=== PATIENT | male | born 1965 | race Hispanic/Latino ===

== ENCOUNTER 2019-11-08 05:49 | Emergency (ER) | payer SELFPAY ==
[2019-11-08] MEDS ORDERED: ALPRAZolam 0.25 MG TAB GT ONE (06:07)
--- NOTE | 2019-11-08 06:18 | ED.PDOC ---
History of Present Illness - General Source: patient Exam Limitations: clinical condition - History of Present Illness Initial Comments: The patient is a 54-year-old male with ALS presenting to the emergency room secondary to increased anxiety and increased tachycardia over the past couple of hours. The patient has been later dependent. He is currently on Levaquin for a pneumonia. The patient mainly reports that he just feels a little short of breath although bit anxious. The patient has quickly found to have a cuff leak on his trach. We did with his permission, change it out for another size 8 trach. He tolerated this well and we seem to be getting a good seal. Moderate tachycardia does still persist however. He does still report a little bit of anxiety. This is apparently a chronic problem. The patient was also apparently just started on riluzole for his ALS, 1 of the more frequent side effects is tachycardia. He is not reporting any chest pain. He is oxygenating well and ventilating well. The patient is pleasant and cooperative. He did receive 1 Xanax and 1 hydrocodone last night. No syncope or near syncope. No fever. Minimal secretions. The patient has not been seen here before. Timing/Duration: 1-3 hours Severity: moderate Improving Factors: nothing Worsening Factors: nothing Associated Symptoms: shortness of breath <Magan Cano L - Last Filed: 11/08/19 06:15> <Aneesh Rodriges - Last Filed: 11/08/19 10:24> - General Chief Complaint: Behavioral / Psych Stated Complaint: increased anxiety, elevated BP, less responsive Time Seen by Provider: 11/08/19 05:51 - History of Present Illness Allergies/Adverse Reactions: Allergies NO KNOWN ALLERGY Allergy (Verified 11/08/19 06:04) Home Medications: Ambulatory Orders ALPRAZolam [Xanax] 0.25 mg GT Q24HR PRN 11/08/19 Acetaminophen [Acetaminophen Extra Stren] 500 mg GT Q8HRS PRN 11/08/19 Albuterol Sulfate Nebs [Proventil Nebs] 2.5 mg INH TID PRN 11/08/19 Alprazolam 0.25 mg GT DAILY 11/08/19 Aluminum & Magnesium Hydroxide [Maalox] 30 ml GT Q8HR PRN 11/08/19 Ascorbic Acid [Vitamin C] 500 mg GT DAILY 11/08/19 Atropine Sulfate (Ophthalmic) [Atropine Sulfate] 2 drop PO Q6H PRN 11/08/19 Baclofen 10 mg GT BID 11/08/19 Balsam [place] Oil [Venelex] 1 applic TOP QSHIFT 11/08/19 Bisacodyl Suppository 10Mg [Dulcolax Suppository 10mg] 10 mg HI Q24HR PRN 11/08/19 Cetirizine HCl [All Day Allergy] 10 mg GT DAILY 11/08/19 Chlorhexidine Gluconate (Mouth [Chlorhexidine Gluconate] 15 ml GT Q6HR PRN 11/08/19 Cholestyramine 4 gm GT BID 11/08/19 Citalopram Hydrobromide [Citalopram] 40 mg GT DAILY 11/08/19 Cyanocobalamin [Vitamin B-12] 100 mcg GT DAILY 11/08/19 Dextromethorphan HBr-Quinidine [Nuedexta 20-10 mg] 1 capsule GT DAILY 11/08/19 Gabapentin 300 mg GT DAILY 11/08/19 HYDROcodone 10MG/APAP 325MG [[place] 10/325] 1 tab GT Q12HR PRN 11/08/19 Ibuprofen 800 mg GT Q8HR PRN 11/08/19 Ipratropium/Albuterol [Duoneb] 3 ml NEB Q4HR PRN 11/08/19 Loperamide Cap [Imodium Cap] 2 mg GT PRN PRN 11/08/19 Misc Natural Products [Turmeric Curcumin] 2 capsule GT DAILY 11/08/19 Polyethylene Glycol 3350 17 gm GT DAILY 11/08/19 Riluzole 50 mg GT Q12HRS 11/08/19 Scopolamine 1.5 mg TD WKLY 11/08/19 Sennosides-Docusate Sodium [Doc-Q-Lax] 1 tab GT DAILY 11/08/19 Sertraline HCl 25 mg GT DAILY 11/08/19 Temazepam 15 mg GT BEDTIME 11/08/19 levoFLOXacin [Levaquin] 500 mg GT DAILY 11/08/19 Review of Systems - Review of Systems Constitutional: States: no symptoms reported EENTM: States: no symptoms reported Respiratory: States: short of breath Cardiology: States: palpitations Gastrointestinal/Abdominal: States: no symptoms reported Genitourinary: States: no symptoms reported Musculoskeletal: States: no symptoms reported Skin: States: no symptoms reported Neurological: States: see HPI, anxiety, depressed Endocrine: States: no symptoms reported All other Systems: No Change from Baseline <aMgan Cano - Last Filed: 11/08/19 06:15> Past Medical History (General) - Patient Medical History Hx Seizures: No Hx Stroke: No Hx Dementia: No Hx Asthma: No Hx of COPD: No Hx Cardiac Disorders: No Hx Congestive Heart Failure: No Hx Pacemaker: No Hx Hypertension: Yes Hx Thyroid Disease: No Hx Diabetes: No Hx Gastroesophageal Reflux: Yes Hx Renal Disease: No Hx Cancer: No Hx of HIV: No Hx Hepatitis C: No Hx MRSA: No Surgical History: noncontributory - Vaccination History Hx Influenza Vaccination: Yes - Social History Hx Alcohol Use: No - Activities of Daily Living Longterm/Assisted Living (if applicable):: [facility] <Magan Cano - Last Filed: 11/08/19 06:15> Family Medical History - Family History Mother Family History: Unknown <Magan Cano Sue - Last Filed: 11/08/19 06:15> Physical Exam - Physical Exam General Appearance: Alert, Anxious, No apparent distress Eye Exam: bilateral normal Ears, Nose, Throat: hearing grossly normal, normal pharynx Neck: full range of motion, supple, other - Tracheostomy is in place however the initial trach cuff is leaking Respiratory: normal breath sounds, no respiratory distress, no accessory muscle use, rales - What I suspect are chronic bibasilar Rales. Cardiovascular/Chest: normal peripheral pulses, no edema, tachycardia - Sinus Peripheral Pulses: radial,right: 2+, radial,left: 2+, dorsalis pedis,right: 2+, dorsalis pedis,left: 2+ Gastrointestinal/Abdominal: non tender, soft Rectal Exam: deferred Back Exam: no vertebral tenderness Extremity: no pedal edema, no calf tenderness, normal capillary refill, other - The patient does have some arthritic changes in his hands. He does have some wasting of his extremities otherwise. Neurologic: automobile bumper straightener II-XII nml as tested, alert, oriented x 3, other - He is anxious. He is able to communicate with hand gestures and yes/no questions. Information does seem fairly reliable. 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 The initial problem found is a cuff leak on his trach. It was changed out with apparent success. This did help the symptoms of shortness of breath and anxiety somewhat. He is still moderately tachycardic. He is currently being treated for pneumonia. We are obtaining a chest x-ray. We are also obtaining blood work as this is the first time we have seen this patient. Tachycardia is a significant side effect of riluzole, which he started just 2 days ago. If no other source of the tachycardia is found, then discontinuation of this medication for a day or 2 may be warranted to see if the tachycardia resolves. EKG was obtained here primarily for baseline and to make sure there seem to be no underlying other arrhythmia. The patient did receive a dose of 0.5 mg Xanax here by his G-tube for anxiety. 11/08/19 06:24 - Results/Orders Results/Orders: EKG shows sinus tachycardia 127 bpm. Borderline right axis. Normal R wave progression. Borderline LVH criteria. Very mildly prolonged QT interval. No definite ST segment or T wave changes indicative of acute ischemia. <JeromeGomeznilo Rogers - Last Filed: 11/08/19 06:15> - Results/Orders Results/Orders: ELEV D-DIMER FROM PNE. CTA NEG FOR P.E. PENDING: SPUTUM CX, COVID-19 SWAB, BLOOD CX. NEG DIAGNOSTICS: COAGS, CMP, EKG (SINUS TACH), TSH, LACTIC ACID, BNP, CTA. TACHYCARDIA FROM DEHYDRATION IMPROVED WITH BOLUS. 132, NOW 104. ANXIETY IMPROVED WITH TRACHEOSTOMY CUFF CHANGE NOW PROVIDING A TIGHT SEAL (HAD BEEN LEAKING). SATS WNL. CTA NEG. PT HAVING NO RESPIRATORY OR OTHER DISTRESS. IS COMFORTABLE. OBSERVED IN ER FOR 4 HRS AND PT HAS REMAINED STABLE AND COMFORTABLE. HAS KNOWN PNA WITH ELEV WBC 29,000, CXR BLL PNE, IS ON LEVAQUIN. DOES NOT REQUIRE HOSPITAL ADMISSION (VSS). PNE CAN CONTINUE TO BE TX OUTPT AT THE [facility], WHICH HAS CHRONIC VENTILATOR MANAGEMENT. CONTINUE OUTPT LEVAQUIN AND VENT MGMT AT [place]. INPT IS NOT REQUIRED AT THIS TIME, HOWEVER INSTRUCTIONS GIVEN TO RETURN TO ER IF CONDITION WORSENS. - EKG/XRAY/CT EKG: Sinus, Tachy <Aneesh Rodriges - Last Filed: 11/08/19 10:24> Departure - Departure Diet: other Activity: increase activity as tolerated <Magan Cano - Last Filed: 11/08/19 06:15> <Aneesh Rodriges - Last Filed: 11/08/19 10:24> - Departure Clinical Impression: Generalized anxiety disorder, Complication of tracheostomy tube, Sinus tachycardia by electrocardiogram, Pneumonia, Neutrophilic leukocytosis, Dehydration Disposition: Discharge to SNF Condition: Fair Departure Forms: ED Discharge - Pt. Copy, Patient Portal Self Enrollment Instructions: Generalized Anxiety Disorder (DC) Referrals: KAYLYNN HAM [Primary Care Provider] - 1-2 Days Home Medications: Ambulatory Orders ALPRAZolam [Xanax] 0.25 mg GT Q24HR PRN 11/08/19 Acetaminophen [Acetaminophen Extra Stren] 500 mg GT Q8HRS PRN 11/08/19 Albuterol Sulfate Nebs [Proventil Nebs] 2.5 mg INH TID PRN 11/08/19 Alprazolam 0.25 mg GT DAILY 11/08/19 Aluminum & Magnesium Hydroxide [Maalox] 30 ml GT Q8HR PRN 11/08/19 Ascorbic Acid [Vitamin C] 500 mg GT DAILY 11/08/19 Atropine Sulfate (Ophthalmic) [Atropine Sulfate] 2 drop PO Q6H PRN 11/08/19 Baclofen 10 mg GT BID 11/08/19 Balsam [place] Oil [Venelex] 1 applic TOP QSHIFT 11/08/19 Bisacodyl Suppository 10Mg [Dulcolax Suppository 10mg] 10 mg HI Q24HR PRN 11/08/19 Cetirizine HCl [All Day Allergy] 10 mg GT DAILY 11/08/19 Chlorhexidine Gluconate (Mouth [Chlorhexidine Gluconate] 15 ml GT Q6HR PRN 11/08/19 Cholestyramine 4 gm GT BID 11/08/19 Citalopram Hydrobromide [Citalopram] 40 mg GT DAILY 11/08/19 Cyanocobalamin [Vitamin B-12] 100 mcg GT DAILY 11/08/19 Dextromethorphan HBr-Quinidine [Nuedexta 20-10 mg] 1 capsule GT DAILY 11/08/19 Gabapentin 300 mg GT DAILY 11/08/19 HYDROcodone 10MG/APAP 325MG [[place] 10/325] 1 tab GT Q12HR PRN 11/08/19 Ibuprofen 800 mg GT Q8HR PRN 11/08/19 Ipratropium/Albuterol [Duoneb] 3 ml NEB Q4HR PRN 11/08/19 Loperamide Cap [Imodium Cap] 2 mg GT PRN PRN 11/08/19 Misc Natural Products [Turmeric Curcumin] 2 capsule GT DAILY 11/08/19 Polyethylene Glycol 3350 17 gm GT DAILY 11/08/19 Riluzole 50 mg GT Q12HRS 11/08/19 Scopolamine 1.5 mg TD WKLY 11/08/19 Sennosides-Docusate Sodium [Doc-Q-Lax] 1 tab GT DAILY 11/08/19 Sertraline HCl 25 mg GT DAILY 11/08/19 Temazepam 15 mg GT BEDTIME 11/08/19 levoFLOXacin [Levaquin] 500 mg GT DAILY 11/08/19
--- NOTE | 2019-11-08 06:24 | RAD ---
Chest one view on 11/08/2019 CLINICAL INDICATION: Pneumonia COMPARISON: None FINDINGS: Tracheostomy tube tip is in the midthoracic trachea. Right IJ catheter tip is in the right atrium. Heart is within normal limits for size. There are bilateral lower lung opacities consistent with atelectasis and/or pneumonia, consider aspiration. Differential diagnosis would include viral infections. IMPRESSION: Bilateral lower lung atelectasis and/or pneumonia, consider aspiration. Electronically signed by: Rich Castaneda 11/08/2019 6:22 AM CDT
[2019-11-08] MEDS ORDERED: PIPERACILLIN/TAZOBACTAM 3.375 GM in SODIUM CHLORIDE 0.9% 100ML 100 ML IVPB ONE (06:33)
[2019-11-08] MEDS ORDERED: SODIUM CHLORIDE 0.9% 1000ML 1,000 ML IVS ONE (06:33)
[2019-11-08] MEDS ORDERED: SODIUM CHLORIDE 0.9% 100ML 100 ML IVPB ONE (06:38)
[2019-11-08] MEDS ORDERED: PIPERACILLIN/TAZOBACTAM 3.375 GM VIAL IVPB ONE (06:38)
--- NOTE | 2019-11-08 07:47 | CT ---
EXAM DESCRIPTION: CTA Chest CLINICAL HISTORY: tachycardai, leukocytosis, elevated ddimer COMPARISON: Chest x-ray same day TECHNIQUE: Postcontrast CT images of the chest are obtained using pulmonary embolism imaging protocol. Three-D MIP reconstructed images of the arterial vasculature are obtained. Coronal and sagittal reconstructed images of the also provided. This exam was performed according to our departmental dose-optimization program, which includes automated exposure control, adjustment of the mA and/or kV according to patient size and/or use of iterative reconstruction technique . FINDINGS: The heart is enlarged. No coronary artery calcifications. Mild elongation and tortuosity of the thoracic aorta with mild scattered calcified plaque. No aneurysmal dilatation or dissection. Right IJ Mediport is in good positioning with tip at the cavoatrial junction. Patient breathing motion artifact limits detailed evaluation. Imaging is also degraded by streak artifact from patient's arms. No definite filling defects or emboli are seen in the pulmonary arteries. Tracheostomy tube is seen in good positioning with tip at the level of the clavicular heads. Several paratracheal, hilar, and subcarinal lymph nodes are seen measuring up to 10 mm short axis. Visualized portion of the upper abdomen shows no acute findings. Calcifications versus contrast filled calyx in the upper pole of the left kidney measure 11 mm. Lungs are hypoaerated. Nonenhancing consolidation is seen in the bilateral lower lobes left greater than right with air bronchograms. Patchy areas of peripheral interstitial alveolar airspace disease is seen anterior to these areas of consolidation. Mild interstitial infiltrate in the posterior right upper lobe with mild posterior bronchial wall thickening. No pneumothorax. No pleural or pericardial effusion. Fluid and debris-filled dilated bronchus to the lower lobes bilaterally. Osseous structures show no aggressive bony lesions. Spondylitic changes of the thoracic spine are seen. IMPRESSION: No CT evidence of pulmonary embolism. Bilateral lower lobe consolidations compatible with bilateral pneumonia versus aspiration. Recommend follow-up until resolution to exclude neoplastic process. Fluid and debris seen in the bronchi of the lower lobes bilaterally. Borderline mediastinal and hilar lymphadenopathy is likely reactive. Continued follow-up is recommended. Mild cardiomegaly. Electronically signed by: Juvencio Leon MD 11/08/2019 7:46 AM CDT
--- NOTE | 2019-11-08 07:55 | CT ---
EXAM DESCRIPTION: Soft Tissue Neck w/Contrast CLINICAL HISTORY: bloody trach bulb, leukocytosis COMPARISON: None. TECHNIQUE: Postcontrast CT images of the neck are obtained with coronal and sagittal reconstructed images. This exam was performed according to our departmental dose-optimization program, which includes automated exposure control, adjustment of the mA and/or kV according to patient size and/or use of iterative reconstruction technique . FINDINGS: Images are mildly moderately degraded by patient motion artifact limiting detailed evaluation. Visualized skull base shows no acute findings. Mild mucosal thickening in the floor the maxillary sinuses left greater than right. Bilateral parotid and submandibular glands are normal and symmetric. Posterior pharyngeal soft tissues shows no abnormal enhancement or fluid collection. Mild soft tissue thickening at the base of the tongue. The epiglottis shows mild diffuse soft tissue thickening. Mild diffuse soft tissue thickening of the vocal cords right greater than left with asymmetric indistinctness of the superior to mid aspect of the right thyroid cartilage. Thyroid is unremarkable. Tracheostomy tube is seen in good positioning with tip at the level of the clavicular heads. Mild soft tissue thickening superior to the tracheostomy is seen. Mild calcifications of the carotid bulb left greater than right. Scattered nonspecific mostly less than 1 cm submandibular and cervical chain lymph nodes are seen in the neck bilaterally. Right IJ Mediport is seen in place. Right upper paratracheal lymph node in the chest measures 11 mm short axis. Osseous structures show no aggressive bony lesions. Moderate facet hypertrophic and degenerative changes on the left at C2-3. IMPRESSION: Tracheostomy tube appears in good positioning with mild probable mucous or debris superior to the tracheostomy. Edema of the vocal cords and epiglottis could represent posttherapeutic changes from chemotherapy or radiation therapy. Question asymmetry of the right thyroid cartilage. Correlate with patient's primary neck pathology. Mild subacute to chronic maxillary sinus disease. Less than 1 cm likely reactive lymphadenopathy in the neck soft tissues. Electronically signed by: Juvencio Leon MD 11/08/2019 7:54 AM CDT
[2019-11-08 13:07] VITALS: BP 94/55; O2SAT 99
[2019-11-08 13:45] VITALS: TEMP 98.8
== END 2019-11-08 13:45 ==
LOC: ER 05:49
DX: F41.9 Anxiety disorder, unspecified (principal); R00.0 Tachycardia, unspecified; E86.0 Dehydration; J18.9 Pneumonia, unspecified organism; I10 Essential (primary) hypertension; D72.829 Elevated white blood cell count, unspecified; Z79.899 Other long term (current) drug therapy; Z93.0 Tracheostomy status; Z93.1 Gastrostomy status; Z03.818 Encounter for observation for suspected exposure to other biological agents ruled out
CPT/HCPCS: 36415; 70491; 71045; 71275; 80053; 82550; 82553; 83605; 83735; 83880; 84443; 84484; 85025; 85379; 85610; 85730; 87040; 87070; 87077; 87186; 87205; 93005; 94002; 96365; 99284; J2543; J7030; J7050; U0002

== ENCOUNTER → 2019-11-25 | Outpatient (CLI) | payer SELFPAY | LOC: GOCC 15:57 | PROVIDERS: ATTEND Internal Medicine | DX: R09.3 Abnormal sputum (principal) ==